=== PATIENT | female | born 2000 | race Caucasian/White ===

== ENCOUNTER 2023-09-25 11:20 | Emergency (ER) | payer OTHER ==
[~2023-09-25] VITALS: Ht 157.5 cm; Wt 48.6 kg
[2023-09-25 11:29] VITALS: TEMP 100
[2023-09-25] MEDS ORDERED: droPERidol 2.5 MG/ML 2 ML VIAL IV ONE (12:00)
[2023-09-25] MEDS ORDERED: Acetaminophen 500 MG TAB PO ONE (12:00)
[2023-09-25] MEDS ORDERED: LR 1,000 ML IV ONE (12:00)
[2023-09-25 12:29] LABS: BASO % 0.3 % (0.0-2.0); EOS % 0.5 % (0.0-4.0); GRAN # 4.7 K/mm3 (1.4-6.5); GRAN % 76.2 % (42.2-75.2); HEMOGLOBIN 12.1 g/dl (12.5-16.0); LYMPH # 0.8 K/mm3 (1.2-3.4); MEAN CELL VOLUME 87 fl (80.0-100.0); MEAN CORPUSCULAR HEMOGLOBIN 29 pg (27-31); MEAN CORPUSCULAR HGB CONC 33 g/dl (33.0-37.0); MEAN PLATELET VOLUME 9.6 fl (7.4-10.4); MONO # 0.6 K/mm3 (0.1-0.6); MONO % 9.8 % (1.7-9.3); PLATELET COUNT 267 K/mm3 (130-400); REDCELL DISTRIBUTION WIDTH-CV 13.2 % (11.5-14.5)
[2023-09-25 12:33] LABS: HEMATOCRIT 36.5 % (37.0-47.0)
[2023-09-25 12:52] LABS: ALBUMIN 3.8 gm/dL (3.5-5.0); BILIRUBIN,TOTAL 0.3 mg/dL (0.2-1.2); CALCIUM 8.8 mg/dL (8.4-10.2); CREATININE, serum 0.79 mg/dL (0.57-1.11); POTASSIUM 3.4 mmol/L (3.5-4.5); TOTAL PROTEIN 6.7 gm/dL (6.2-8.1)
[2023-09-25 14:56] LABS: COLLECTION METHOD CLEAN CATCH
[2023-09-25] MEDS ORDERED: PHENERGAN25 MG RC (15:23)
[2023-09-25 15:24] LABS: URINE APPEARANCE Clear (CLEAR/HAZY); URINE BLOOD Negative (NEGATIVE); URINE COLOR Yellow (YELLOW); URINE GLUCOSE Negative (NEGATIVE); URINE KETONE 2+ (NEGATIVE); URINE NITRATE Negative (NEGATIVE); URINE PROTEIN(semi-quant) Negative (NEGATIVE); URINE UROBILINOGEN 0.2 E.U/dL (0.2-1.0)
[2023-09-25 15:32] VITALS: BP 92/64; PULSE 62
[2023-09-25 15:33] LABS: TRICYCLIC ANTIDEPRESS URINE NEGATIVE (NEGATIVE)
[2023-09-25 15:49] LABS: SQUAMOUS EPITHELIAL 0-2 /hpf (0-10); URINE RBC None Seen /hpf (0-2)
[2023-09-25 15:50] LABS: URINE BACTERIA Rare /hpf (NONE SEEN)
== END 2023-09-25 15:32 | disposition home or self-care (01) ==
LOC: COL.ER 11:20
PROVIDERS: Emergency Medicine
DX: R11.2 Nausea with vomiting, unspecified (principal); R19.7 Diarrhea, unspecified
CPT/HCPCS: J1790; J7120